=== PATIENT | male | born 1960 | race Caucasian/White ===

== ENCOUNTER 2024-09-09 09:35 | Emergency (ER) | payer OTHER, SELFPAY ==
[2024-09-09 09:50] VITALS: BP 167/94; PULSE 74; RESP 16; TEMP 36.7; O2SAT 99
--- NOTE | 2024-09-09 10:35 | ED.URI ---
HPI - URI/Sore Throat General Chief Complaint: Upper Respiratory Infection Stated Complaint: Congestion/Cough Time Seen by Provider: 09/09/24 10:35 Source: patient Mode of arrival: ambulatory Limitations: no limitations History of Present Illness HPI Narrative: 63 yo M presents with c/o cough and chest congestion for approx. 1 wk. Feeling fatigued past few days. Afebrile. Cough keeping him up at night. did covid and flu testing yesterday at [facility] and negative. concerned for pneumonia. all systems reviewed and negative except as noted above. Related Data Allergies Allergy/AdvReac Type Severity Reaction Status Date / Time No Known Allergies Allergy Verified 09/09/24 09:52 Review of Systems Review of Systems: CONSTITUTIONAL: Denies fever, chills, or sweats. Reports fatigue. EYES: Denies visual changes, redness, or discharge. ENT: Denies rhinorrhea, congestion, sore throat, or otalgia. CARDIOVASCULAR: Denies chest pain, palpitations, or edema. RESPIRATORY: Reports cough, chest congestion. Denies dyspnea. GASTROINTESTINAL: Denies abdominal pain, nausea, vomiting, or diarrhea. GENITOURINARY: Denies dysuria or hematuria. SKIN: Denies rash or itching. MUSCULOSKELETAL: Denies back pain, joint pain, or myalgia. NEUROLOGIC: Denies headache, numbness, or weakness. PSYCHIATRIC: Denies anxiety or depression. All other systems reviewed are negative, except as documented in HPI. PMFSH Comments At time of signature, agree with nursing past medical, surgical, social and family history. There is no relevant family history pertinent to the presenting complaint. Exam Narrative: GENERAL: This is a well-nourished, well-developed patient, patient ill-appearing but no acute distress HEAD: normocephalic, atraumatic. EYES: PERRL. Sclera clear/white. Vision is grossly intact. EARS: External ears normal, auditory canals clear and without drainage, TMs normal without perforation. Hearing grossly intact. NOSE: External nose normal with mild congestion, clear nasal drainage, erythema swelling to bilateral nares THROAT: Mucous membranes moist, posterior pharynx clear. NECK: Neck supple, non-tender without lymphadenopathy, masses or thyromegaly. CARDIOVASCULAR: Regular rate and rhythm without murmurs, gallops, or rubs. RESPIRATORY: Decreased to by lower lung lopez otherwise clear Breath sounds equal bilaterally. No wheezes, rales, or rhonchi. SKIN: warm, Dry, intact with no suspicious lesions or rash, good texture and turgor. NEURO: awake, alert, and oriented to person, place and time. There were no obvious focal neurologic abnormalities. EXTREMITIES: No joint tenderness, effusion, or edema noted. Course Course Level of Care: Express Care Visit Vital Signs Vital signs: Vital Signs Temperature 36.7 C 09/09/24 09:50 Pulse Rate 74 09/09/24 09:50 Respiratory Rate 16 09/09/24 09:50 Blood Pressure 167/94 H 09/09/24 09:50 Pulse Oximetry 99 09/09/24 09:50 Oxygen Delivery Room Air 09/09/24 09:50 Temperature 36.7 C 09/09/24 09:50 Pulse Rate 74 09/09/24 09:50 Respiratory Rate 16 09/09/24 09:50 Blood Pressure 167/94 H 09/09/24 09:50 Pulse Oximetry 99 09/09/24 09:50 Oxygen Delivery Room Air 09/09/24 09:50 Reviewed MDM - URI/Sore Throat MDM Narrative Medical decision making narrative: Patient is aware of diagnosis, understands and agrees to treatment plan. Anticipatory guidance given. Patient agrees to follow-up as directed and is aware of reasons to seek care at the emergency department. Portions of this record may have been created with voice recognition software Drink creased lung sounds to bilateral lower lung lopez. Oxygen saturation 99% room air. No respiratory distress. Offered patient chest x-ray to rule out pneumonia and he prefer to just be treated with antibiotic. Did not feel x-ray was necessary. Differential Diagnosis Differential diagnosis: Likely upper respiratory infection and viral infection Discharge Plan Discharge Clinical Impression: Acute lower respiratory infection Patient Disposition: Home, Self-Care Condition: Stable Instructions: Antibiotic Form, Upper Respiratory Infection (ED) Additional Instructions: Take medications as prescribed. Take [id number] Mucinex as directed on packaging. Drink at least 64 oz of water a day. Place cool mist humidifier in bedroom where you sleep. Follow-up with your primary care physician if symptoms are not improving. Patient Language: Jordanian Prescriptions: New azithromycin 250 mg tablet See Rx Instructions .ROUTE .COMPLEX Qty: 6 0RF Rx Instructions: For 250 mg dose pack: take 500 mg today (day 1), then 250 mg for 4 days (days 2-5) benzonatate 200 mg capsule 200 mg PO TID PRN (Reason: cough) Qty: 20 0RF Follow-up/Referrals: PHYSICIAN,MACHINE MAINTENANCE REPAIRER [Primary Care Provider] - Time of Disposition: 10:40
== END 2024-09-09 10:44 | disposition home or self-care (01) ==
PROVIDERS: Emergency Provider Nurse Practitioner Family
DX: J22 Unspecified acute lower respiratory infection (principal)
CPT/HCPCS: 99203; G0463